=== PATIENT | female | born 1995 | race African-American/Black ===

== ENCOUNTER 2018-02-28 12:26 | Emergency (ER) | payer OTHER ==
[~2018-02-28] VITALS: Ht 167.6 cm; Wt 82.1 kg
[2018-02-28 12:53] LABS: URINE COLOR YELLOW
[2018-02-28 12:54] LABS: URINE BILIRUBIN NEGATIVE (Negative); URINE BLOOD NEGATIVE (Negative); URINE CLARITY CLEAR; URINE GLUCOSE-RANDOM* NEGATIVE (Negative); URINE KETONES NEGATIVE (Negative); URINE LEUKOCYTES-REFLEX NEGATIVE (Negative); URINE NITRITE-REFLEX NEGATIVE (Negative); URINE PROTEIN (DIPSTICK) NEGATIVE (Negative); URINE SPECIFIC GRAVITY >= 1.030 (1.005-1.035); URINE UROBILINOGEN 0.2 E.U./dl (0.2-1.0)
[2018-02-28 13:11] LABS: HEMATOCRIT 39.6 % (37.0-47.0); HEMOGLOBIN 13.2 gm/dL (12.0-15.0); MCH 29.2 pg (26.0-34.0); MCHC 33.4 g/dL (28.0-37.0); MCV 87.2 fL (80.0-100.0); RBC 4.54 mil/uL (4.20-5.00); RDW 13.7 % (10.5-14.5); WBC 5.6 thou/uL (4.0-11.0)
[2018-02-28 13:19] LABS: CALCIUM 8.9 mg/dL (8.5-10.1); CREATININE 0.7 mg/dL (0.6-1.0); POTASSIUM 4.1 mmol/L (3.5-5.1)
[2018-02-28 13:24] LABS: ALBUMIN 3.5 g/dL (3.4-5.0); TOTAL BILIRUBIN 0.2 mg/dL (<0.1-1.0); TOTAL PROTEIN 7.3 g/dL (6.4-8.2)
[2018-02-28] MEDS ORDERED: MIRALAX17 GM PO (14:27)
[2018-02-28 14:44] VITALS: BP 127/64
== END 2018-02-28 14:45 | disposition home or self-care (01) ==
LOC: ER 12:26
PROVIDERS: Physician Assistant
DX: K43.9 Ventral hernia without obstruction or gangrene (principal); K59.00 Constipation, unspecified; R42 Dizziness and giddiness

== ENCOUNTER 2020-04-08 20:39 | Emergency (ER) | payer OTHER ==
[~2020-04-08] VITALS: Ht 167.6 cm; Wt 90.7 kg
--- NOTE | ~2020-04-08 | EKG ---
[place] [address] [facility] [place] [address] ELECTROCARDIOGRAM REPORT Name: NOE COLLINS Room #: RASHEED Bob#: [id number] Admission: 04/08/20 Attend Phys: Discharge: 04/08/20 Date of : [birth year] Report #: [id number] [facility] ED Test Date: 2020-04-08 Test Time: 20:59:57 Pat Name: NOE COLLINS Department: Room: Gender: F Senior Quality Control Inspector: curtis nurse : 1995 Requested By: Scott Guzman Order Number: [id number] MD: Measurements Intervals [place] Rate: 113 P: 65 NM: 202 QRS: 72 QRSD: 93 T: 10 QT: 321 QTc: 441 Interpretive Statements Sinus tachycardia Borderline prolonged NM interval Borderline Q waves in inferior leads Baseline wander in lead(s) V5 No previous ECG available for comparison [email or web address] By: 58 [id number] Kira Malone MD /EPI
[~2020-04-08 20:39] MED LIST: MIRALAX17 GM PO
[2020-04-08] MEDS ORDERED: NOHOMEMEDICATIONS (20:59)
[2020-04-08 21:14] LABS: ABSOLUTE NEUTROPHILS 2.2 thou/uL (1.4-8.2); BASOPHILS 0.9 % (0.0-2.0); EOSINOPHILS 3.2 % (0.0-3.0); HEMATOCRIT 35.4 % (37.0-47.0); HEMOGLOBIN 11.8 gm/dL (12.0-15.0); LYMPHOCYTES 35.6 % (24.0-44.0); MCH 29.8 pg (26.0-34.0); MCHC 33.3 g/dL (28.0-37.0); MCV 89.3 fL (80.0-100.0); MONOCYTES 12.2 % (1.0-8.0); PLATELET COUNT 267 thou/uL (150-400); POLYS 48.1 % (36.0-66.0); RBC 3.96 mil/uL (4.20-5.00); RDW 12.9 % (10.5-14.5); WBC 4.5 thou/uL (4.0-11.0)
[2020-04-08 21:25] LABS: ANION GAP 9 mmol/L (7-16); BUN 7 mg/dL (7-18); CALCIUM 8.6 mg/dL (8.5-10.1); CHLORIDE 104 mmol/L (98-107); CO2 26 mmol/L (21-32); CREATININE 0.8 mg/dL (0.6-1.0); GLUCOSE 88 mg/dL (74-106); POTASSIUM 3.5 mmol/L (3.5-5.1); SODIUM 139 mmol/L (136-145)
[2020-04-08 21:35] LABS: TROPONIN-I <0.06 ng/mL (<0.06)
[2020-04-08] MEDS ORDERED: IBUPROFEN 600600 M1 PO (21:41)
[2020-04-08 23:29] VITALS: BP 106/67
== END 2020-04-08 23:20 | disposition home or self-care (01) ==
LOC: ER 20:39
PROVIDERS: Emergency Medicine
DX: R07.89 Other chest pain (principal); F12.90 Cannabis use, unspecified, uncomplicated